=== PATIENT | male | born 1990 | race African-American/Black ===

== ENCOUNTER → 2018-07-24 | Outpatient (CLI) | payer OTHER ==
[~2018-07-24] MED LIST: CYCL5TAB PO; IBUP-1022 PO
--- NOTE | 2018-07-24 14:29 | REP ---
CT RIGHT SHOULDER: CT exam right shoulder performed in the axial plane with sagittal and coronal reconstruction images. Correlation made with prior MRI 07/04/2018 from [facility]. I see no evidence of acute fracture, dislocation, or intrinsic bone disease. No bone lesion is seen. There is a linear calcification seen along the anterior surface of the subscapularis muscle measuring 1.3 cm in length. This is likely due to prior injury or calcific tendonitis. No other definite soft tissue abnormality is seen. The visualized right lung is clear with no abnormality. IMPRESSION: No fracture or dislocation. Bony glenoid is intact. There is a linear 1.3 cm calcification along the anterior surface of the subscapularis muscle anterior to the bony glenoid. This may represent prior muscular injury or calcific tendonitis. Electronically Signed by Garret Majano MD 07/25/2018 02:42 P
== END ==
LOC: M RAD 07:34
DX: M25.511 Pain in right shoulder (principal); M61.411 Other calcification of muscle, right shoulder

== ENCOUNTER 2018-07-31 20:03 | Emergency (ER) | payer OTHER ==
[~2018-07-31] VITALS: Ht 175.3 cm; Wt 63.6 kg
[2018-07-31 20:11] VITALS: BP 109/72
[2018-07-31] MEDS ORDERED: IBUP-1022 PO (20:56)
[2018-07-31] MEDS ORDERED: CYCL5TAB PO (20:56)
[2018-07-31] MEDS ORDERED: CYCLOBENZAPRINE 10 MG TAB PO ONE (21:00)
--- NOTE | 2018-07-31 21:29 | REP ---
Clinical: Right shoulder injury . Technique: Internal rotation, external rotation, and Y view. Findings: No acute fracture or dislocation. The acromioclavicular and glenohumeral joints are intact. No periarticular calcifications or degenerative changes are appreciated. Sub acromial space is normal. Surrounding soft tissues are unremarkable. Impression: Normal right shoulder radiographs. Electronically Signed by Rene Brewer MD 07/31/2018 09:22 P
== END 2018-07-31 21:15 | disposition home or self-care (01) ==
LOC: EDBD 20:03 → M ED 20:03
DX: M24.411 Recurrent dislocation, right shoulder (principal); M62.838 Other muscle spasm

== ENCOUNTER → 2019-12-09 | Outpatient (CLI) | payer OTHER ==
[~2019-12-09] MED LIST changes: +PROHANCE 279.3MG/ML 15ML VIAL As Ordered ONE; +PROHANCE 279.3MG/ML 5ML VIAL As Ordered ONE
--- NOTE | 2019-12-15 09:17 | REP ---
MRA BILATERAL LOWER EXTREMITIES WITH AND WITHOUT CONTRAST HISTORY: Left leg pain and numbness. TECHNIQUE: MRA lower extremities performed utilizing 3D [id number] imaging with MIP reconstruction images, with the intravenous administration of 35 mL ProHance. FINDINGS: Bilateral superficial femoral arteries, popliteal arteries, and tibioperoneal trunks are widely patent with no stenosis. Bilateral anterior tibial, posterior tibial, and peroneal arteries are widely patent. There is three vessel runoff into the right foot. On the left, the peroneal artery demonstrates an anastomosis with the anterior tibial artery in the region of the ankle. Anterior and posterior tibial arteries are widely patent traversing into the foot. IMPRESSION: No evidence of significant stenosis of bilateral lower extremity arterial systems. MTDD
== END ==
LOC: M RAD 15:42
PROVIDERS: ATTEND Surgery
DX: M79.605 Pain in left leg (principal)